=== PATIENT | male | born 1970 | race Caucasian/White ===

== ENCOUNTER 2018-08-20 16:35 | Outpatient (REF) | payer BC, SELFPAY ==
[2018-08-20 20:26] LABS: ALT 42 U/L (12-78); AST 15 U/L (15-37); Albumin 3.8 g/dL (3.4-5.0); Alkaline Phosphatase 101 U/L (46-116); Anion Gap 11.2 mmol/L (3-11); BUN 22 mg/dL (7-18); Bilirubin, Total 0.5 mg/dL (0.2-1.0); CO2 26.8 mmol/L (21.0-32.0); CREATININE 0.86 mg/dL (0.70-1.30); Calcium 9.7 mg/dL (8.5-10.1); Chloride 102 mmol/L (98-107); Cholesterol 175 mg/dL (50-200); Glucose 267 mg/dL (70-100); HDL Cholesterol 44 mg/dL (40-60); LDL CHOLESTEROL 104 mg/dL (<100); Potassium 3.9 mmol/L (3.5-5.1); Sodium 140 mmol/L (136-145); Total Protein 6.9 g/dL (6.4-8.2); Triglyceride 294 mg/dL (30-150)
[2018-08-21 14:31] LABS: Hemoglobin A1C 8.8 % (4.5-6.2)
== END 2018-08-20 16:55 ==
LOC: NCHCN 16:35
PROVIDERS: PCP Nurse Practitioner Family; Visit Provider Family Medicine
DX: E11.65 Type 2 diabetes mellitus with hyperglycemia (principal); Z79.4 Long term (current) use of insulin
CPT/HCPCS: 80053; 80061; 83721; 83036

== ENCOUNTER 2020-02-29 08:32 | Outpatient (REF) | payer BC, SELFPAY ==
[2020-02-29 21:41] LABS: ALT 49 U/L (16-63); AST 18 U/L (15-37); Alkaline Phosphatase 93 U/L (46-116); Anion Gap 8.3 mmol/L (3-11); BUN 26 mg/dL (7-18); Bilirubin, Total 0.5 mg/dL (0.2-1.0); CO2 25.7 mmol/L (21.0-32.0); CREATININE 1.01 mg/dL (0.70-1.30); Calcium 9.1 mg/dL (8.5-10.1); Calculated LDL 111 mg/dL (<100); Chloride 101 mmol/L (98-107); Cholesterol 182 mg/dL (<200); Glucose 216 mg/dL (74-106); HDL Cholesterol 41 mg/dL (40-60); Potassium 4.5 mmol/L (3.5-5.1); Sodium 135 mmol/L (136-145); Triglyceride 150 mg/dL (<150)
[2020-02-29 21:51] LABS: Bilirubin, Direct 0.11 mg/dL (0.00-0.20)
== END 2020-02-29 08:52 ==
LOC: NCHCN 08:32
PROVIDERS: PCP Nurse Practitioner Family; Visit Provider Family Medicine
DX: I10 Essential (primary) hypertension (principal); E78.5 Hyperlipidemia, unspecified; E11.9 Type 2 diabetes mellitus without complications; Z79.4 Long term (current) use of insulin
CPT/HCPCS: 80048; 80061; 80076

== ENCOUNTER 2020-04-13 10:59 | Outpatient (REF) | payer BC, SELFPAY ==
[2020-04-15 20:13] LABS: COVID-19 RT-PCR Result NEGATIVE (Negative)
== END 2020-04-13 11:19 ==
LOC: NCHCN 10:59
PROVIDERS: PCP Nurse Practitioner Family; Visit Provider Family Medicine
DX: Z20.822 Contact with and (suspected) exposure to COVID-19 (principal)
CPT/HCPCS: U0003

== ENCOUNTER 2021-03-01 00:29 | Outpatient (CLI) | payer BC, SELFPAY ==
--- NOTE | 2021-03-01 | DI.RAD_ITS ---
Exam(s) XR HIP RT COMPLETE AP PELVIS EXAM: XR HIP RT COMPLETE AP PELVIS INDICATION: RT HIP PAIN, M25.551. COMPARISON: No exams were available for comparison TECHNIQUE: 2D digital imaging was performed. FINDINGS: Is mild right hip joint space narrowing and mild spurring at the superior acetabulum. No femoral hea d deformity is seen. There is mild spurring at the left superior acetabulum. The SI joints show mil d degenerative changes. IMPRESSION: Mild degenerative changes of the hips, right greater than left. DATA REPOSITORY: RADIATION DOSE DELIVERED:
--- NOTE | 2021-03-01 10:20 | DI.RAD_ITS ---
Exam(s) XR LUMBAR SPINE COMPLETE EXAM: XR LUMBAR SPINE COMPLETE CLINICAL HISTORY: LUMBAR RADICULOPATHY, M54.16. TECHNIQUE: 2D digital imaging was performed. COMPARISON: CR XR HIP RT COMPLETE AP PELVIS from 03/01/2021 CR XR HIP RT COMPLETE AP PELVIS from 03/01/2021 FINDINGS: BONES: No fracture or destructive lesion. Vertebral bodies are well maintained in height. There are prominent bridging osteophytes the right anterior at the L1-2 level. Minimal osteophytes are seen at the remaining levels. The L1-2 disc space shows mild narrowing. The remaining disc spaces are well maintained. No spondylolysis or spondylolisthesis is seen. ALIGNMENT: Lumbar spinal alignment is within normal limits. SOFT TISSUE: Mild aortic calcification. IMPRESSION: Degenerative disc changes at L1-2.. DATA REPOSITORY: RADIATION DOSE DELIVERED:
== END 2021-03-01 00:49 ==
LOC: DI 00:30
PROVIDERS: PCP Nurse Practitioner Family; Visit Provider Family Medicine
DX: M25.551 Pain in right hip (principal); M54.16 Radiculopathy, lumbar region; M51.36 Other intervertebral disc degeneration, lumbar region; M16.0 Bilateral primary osteoarthritis of hip
CPT/HCPCS: 72110; 73502

== ENCOUNTER 2021-06-21 17:02 | Outpatient (REF) | payer BC, SELFPAY ==
[2021-06-21 19:11] LABS: Hemoglobin A1C 7.7 % (<5.7)
[2021-06-21 19:20] LABS: ALT 44 U/L (16-63); AST 20 U/L (15-37); Albumin 4.5 g/dL (3.4-5.0); Alkaline Phosphatase 97 U/L (46-116); Anion Gap 11.4 mmol/L (3-11); BUN 24 mg/dL (7-18); Bilirubin, Total 0.7 mg/dL (0.2-1.0); CO2 24.6 mmol/L (21.0-32.0); Calcium 9.8 mg/dL (8.5-10.1); Chloride 103 mmol/L (98-107); Glucose 139 mg/dL (74-106); Potassium 4.4 mmol/L (3.5-5.1); Sodium 139 mmol/L (136-145); Total Protein 7.6 g/dL (6.4-8.2)
[2021-06-21 19:38] LABS: Calculated LDL 119 mg/dL (<100); Cholesterol 188 mg/dL (<200); HDL Cholesterol 48 mg/dL (40-60); Triglyceride 107 mg/dL (<150)
== END 2021-06-21 17:03 | disposition home or self-care (01) ==
LOC: NCHCN 17:02
PROVIDERS: PCP Nurse Practitioner Family; Visit Provider Family Medicine
DX: E11.65 Type 2 diabetes mellitus with hyperglycemia (principal); I10 Essential (primary) hypertension; E78.5 Hyperlipidemia, unspecified
CPT/HCPCS: 80053; 80061; 83036

== ENCOUNTER 2022-07-22 11:19 | Outpatient (REF) | payer BC, SELFPAY ==
[2022-07-22 16:25] LABS: Hemoglobin A1C 8.7 % (<5.7)
[2022-07-22 16:51] LABS: ALT 58 U/L (16-63); AST 23 U/L (15-37); Alkaline Phosphatase 97 U/L (46-116); BUN 24 mg/dL (7-18); Bilirubin, Total 0.5 mg/dL (0.2-1.0); Calcium 9.4 mg/dL (8.5-10.1); Calculated LDL 104 mg/dL (<100); Chloride 102 mmol/L (98-107); Cholesterol 206 mg/dL (<200); Estimated GFR 91.69 (mL/min/1.73m2); Glucose 230 mg/dL (74-106); HDL Cholesterol 44 mg/dL (40-60); Potassium 4.2 mmol/L (3.5-5.1); Sodium 137 mmol/L (136-145); Total Protein 7.6 g/dL (6.4-8.2); Triglyceride 294 mg/dL (<150)
== END 2022-07-22 11:20 | disposition home or self-care (01) ==
LOC: NCHCN 11:19
PROVIDERS: PCP Nurse Practitioner Family; Visit Provider Family Medicine
DX: E11.65 Type 2 diabetes mellitus with hyperglycemia (principal); E78.5 Hyperlipidemia, unspecified; M79.671 Pain in right foot; I10 Essential (primary) hypertension; Z79.4 Long term (current) use of insulin; M72.2 Plantar fascial fibromatosis
CPT/HCPCS: 80053; 80061; 83036

== ENCOUNTER 2023-01-20 14:44 | Outpatient (REF) | payer BC, SELFPAY ==
[2023-01-20 16:03] LABS: Abs Immature Grans 0.06 10^3/uL (0.0-0.06); Absolute Basophil Count 0.06 10^3/uL (0.0-0.2); Absolute Lymphocyte Count 0.96 10^3/uL (1.2-3.4); Absolute Monocyte Count 0.97 10^3/uL (0.1-0.8); Basophils % 0.5; HCT 46.3 % (40.0-50.0); HGB 15.9 g/dL (13.5-17.5); Immature Grans % 0.5; Lymphocytes % 7.5; MCH 30.9 pg (27.0-33.0); MCHC 34.3 % (32.0-36.0); MCV 90 fL (80-95); MPV 9.2 fL (8.0-11.0); Monocytes % 7.6; Neutrophils % 83.9; Platelet Count 265 10^3/uL (130-400); RBC 5.14 10^6/uL (4.36-5.78); RDW 11.4 % (11.8-14.1); RDW-SD 37.4 fL; WBC 12.78 10^3/uL (4.4-10.8)
[2023-01-20 16:12] LABS: Absolute Neutrophil Count 10.72 10^3/uL (1.2-6.7)
[2023-01-20 16:19] LABS: Anion Gap 9.9 mmol/L (3-11); BUN 28 mg/dL (7-18); CO2 24.1 mmol/L (21.0-32.0); CREATININE 1.5 mg/dL (0.70-1.30); Calcium 10.4 mg/dL (8.5-10.1); Chloride 99 mmol/L (98-107); Estimated GFR 56.37 (mL/min/1.73m2); Glucose 355 mg/dL (74-106); Potassium 4.5 mmol/L (3.5-5.1); Sodium 133 mmol/L (136-145)
== END 2023-01-20 14:45 | disposition home or self-care (01) ==
LOC: NCHCN 14:44
PROVIDERS: PCP Nurse Practitioner Family; Visit Provider Physician Assistant Medical
DX: R10.32 Left lower quadrant pain (principal)
CPT/HCPCS: 80048; 85025

== ENCOUNTER 2023-03-20 18:10 | Outpatient (REF) | payer BC, SELFPAY ==
[2023-03-20 15:53] LABS: AST 19 U/L (15-37); Anion Gap 10.2 mmol/L (3-11); BUN 28 mg/dL (7-18); CO2 26.8 mmol/L (21.0-32.0); CREATININE 1.1 mg/dL (0.70-1.30); Calculated LDL 129 mg/dL (<100); Chloride 98 mmol/L (98-107); Cholesterol 211 mg/dL (<200); Estimated GFR 81.28 (mL/min/1.73m2); Glucose 247 mg/dL (74-106); HDL Cholesterol 50 mg/dL (40-60); Potassium 4.2 mmol/L (3.5-5.1); Sodium 135 mmol/L (136-145); Triglyceride 160 mg/dL (<150)
[2023-03-20 16:19] LABS: Creatine Kinase 150 U/L (39-308)
== END 2023-03-20 18:11 | disposition home or self-care (01) ==
LOC: NCHCN 18:10
PROVIDERS: PCP Family Medicine; Visit Provider Family Medicine
DX: E78.5 Hyperlipidemia, unspecified (principal); I10 Essential (primary) hypertension
CPT/HCPCS: 80048; 80061; 82550; 84450

== ENCOUNTER 2023-06-19 15:43 | Outpatient (REF) | payer BC, SELFPAY ==
[2023-06-19 18:59] LABS: Anion Gap 11.3 mmol/L (3-11); BUN 28 mg/dL (7-18); CO2 26.7 mmol/L (21.0-32.0); Calcium 9.9 mg/dL (8.5-10.1); Chloride 99 mmol/L (98-107); Estimated GFR 91.12 (mL/min/1.73m2); Glucose 189 mg/dL (74-106); Potassium 3.7 mmol/L (3.5-5.1); Sodium 137 mmol/L (136-145)
[2023-06-19 19:36] LABS: Hemoglobin A1C 9.3 % (<5.7)
== END 2023-06-19 15:44 | disposition home or self-care (01) ==
LOC: NCHCN 15:43
PROVIDERS: PCP Family Medicine; Referring Provider Family Medicine; Visit Provider Family Medicine
DX: E11.9 Type 2 diabetes mellitus without complications (principal); I10 Essential (primary) hypertension
CPT/HCPCS: 80048; 83036

== ENCOUNTER → 2023-07-28 04:17 | Outpatient (CLI) | payer BC, SELFPAY ==
--- NOTE | 2023-07-28 08:05 | DI.RAD_ITS ---
Exam(s) XR SHOULDER RT COMPLETE 2+V EXAM: XR SHOULDER RT COMPLETE 2+V CLINICAL HISTORY: RT SHOULDER PAIN, M25.511,? JOINT LIMITATION OR CALCIFIC TENDONITIS. TECHNIQUE: 2D digital imaging was performed of the right shoulder. Five images were obtained. AP, Grashey, Y-view and axillary views were obtained. COMPARISON: No exams were available for comparison FINDINGS: BONES: No acute fracture is present. No bony destructive lesion is seen. JOINTS: No dislocation present. The joint spaces are well maintained. SOFT TISSUE: Normal. No soft tissue calcifications are identified. IMPRESSION: Unremarkable radiographs of the right shoulder. DATA REPOSITORY: RADIATION DOSE DELIVERED:
== END ==
PROVIDERS: PCP Family Medicine; Visit Provider Family Medicine
DX: M25.511 Pain in right shoulder (principal)
CPT/HCPCS: 73030

== ENCOUNTER → 2023-09-28 02:05 | Outpatient (CLI) | payer BC, SELFPAY ==
--- NOTE | 2023-09-28 08:20 | DI.MRI_ITS ---
Exam(s) MR UPPER JOINT RT WO EXAM: MR UPPER JOINT RT WO CLINICAL HISTORY: evaluate for potential partial rotator cuff tear,bursitis rt shoulder,m75.5. TECHNIQUE: Multiplanar multisequence MRI was performed. COMPARISON: CR XR SHOULDER RT COMPLETE 2+V from 07/28/2023 FINDINGS: BONES: There is no fracture or contusion pattern. JOINTS: Moderate degenerative changes are seen at the acromioclavicular joint. The glenohumeral join t is normal. No significant joint effusion. TENDONS: Supraspinatus: Unremarkable. Infraspinatus: On the sagittal images there is hyperintense signal seen within the infraspinatus tend on at its insertion site consistent with a partial tear. Subscapularis: Unremarkable. Teres Minor: Unremarkable. Biceps and [place]: Unremarkable. MUSCLES: Unremarkable. GLENOID LABRUM: There is hyperintense signal seen in the superior labrum through its entire length co nsistent with a tear. SOFT TISSUES: Unremarkable. LIGAMENTS: Unremarkable. OTHER: Subacromial and subdeltoid bursae are unremarkable. IMPRESSION: 1. Hyperintense signal seen in the rotator cuff tendon which appears to be confined to the infraspina tus tendon consistent with a partial tear. This is best appreciated on the sagittal views. 2. Hyperintense signal seen in the superior labrum throughout its entire length consistent with a tea r. 3. Degenerative changes seen at the acromioclavicular joint. DATA REPOSITORY:
== END ==
PROVIDERS: PCP Family Medicine; Visit Provider Student in an Organized Health Care Education/Training Program
DX: M75.51 Bursitis of right shoulder (principal)
CPT/HCPCS: 73221

== ENCOUNTER 2024-03-11 06:04 | Day surgery (SDC) | payer BC, SELFPAY ==
[2024-03-11] VITALS (25 sets, daily range): BP systolic 102–154; BP diastolic 36–98; PULSE 61–84; RESP 14–22; TEMP 36.1–36.6; O2SAT 92–96; BMI 31.1
[2024-03-11] MEDS: Normal Saline 1,000 ML 30 ML IV (07:10)
--- NOTE | 2024-03-11 07:13 | W.PM.DSUDISC ---
Date of service: 03/11/24 Discharge Plan Disposition Patient Disposition: Home Condition: Stable Discharge Details Attending Provider: Carlos Go Primary Care Provider: Angela Baig V Home Meds and New Rx's Prescriptions: New oxycodone-acetaminophen [Percocet] 5-325 mg tablet 1 - 2 tab PO Q4H MDD 30 mg PRN (Reason: moderate to severe pain) Qty: 18 0RF naproxen 250 mg tablet 250 - 500 mg PO BID PRNQty: 40 0RF Rx Instructions: take with a meal Continued Ozempic 1 mg/dose (4 mg/3 mL) pen injector 1 mg subcut QWEEK glucosamine HCl 1,500 mg tablet 1,500 mg PO DAILY Rx Instructions: administer with a meal fexofenadine [Ade Allergy] 180 mg tablet 180 mg PO DAILY multivitamin Tablet 1 tab PO DAILY aspirin 81 mg tablet,delayed release (DR/EC) 81 mg PO DAILY insulin lispro [Humalog KwikPen Insulin] 100 unit/mL insulin pen 1 sliding scale dose subcut USEASDIRECTD losartan-hydrochlorothiazide 100-25 mg tablet 1 tab PO DAILY atorvastatin 40 mg tablet 40 mg PO DAILY metformin 500 mg tablet 500 mg PO DAILY insulin degludec [Tresiba FlexTouch U-100] 100 unit/mL (3 mL) insulin pen 50 unit subcut DAILY Discharge Instructions Additional Instructions: Surgery: Right shoulder arthroscopy with biceps tenodesis, extensive debridement, subacromial decompression, and manipulation under anesthesia. Activity: You should gradually increase range of motion motion and use of your shoulder. You may use your shoulder for all regular activities while protecting biceps repair. Avoid any weighted elbow flexion or resisted supination for 6-8 weeks. No heavy lifting, reaching overhead, or lifting away from body for approximately 2-3 months. You may use the sling whenever you are out of the house for a few weeks. At home it is best to remove the sling and rest the arm on a pillow at your side or support the operative side with your other hand. A physical therapy prescription will be sent electronically to start in about 3 weeks. Prescriptions: Resume home aspirin 81 mg tomorrow Naproxen 250 mg take 1-2 every 12 hours with a meal as needed for moderate pain Oxycodone-acetaminophen 5-325 mg take 1-2 every 4-6 hours as needed for severe pain You may use vfwb-spi-xxcctns Tylenol (acetaminophen) as needed for mild pain. These pain medications may be taken all at once or in different combinations as needed. Also, recommend Colace (docusate) as a stool softener as surgery and pain medicine cause constipation. You may try ealw-lez-edirxak diphenhydramine (Benadryl) 25-50 mg nightly as a sleep aid Dressings: Remove shoulder bandage after 3 days. Leave the sticky Steri-Strips in place until they fall off or remove them after you shower. Cover the incisions with Band-Aids or leave them open to air. You may shower after 5 days. Follow-up: 10-[address] Go You may take off the leg compression stockings this evening at home. You may also leave them on a few days longer if you have a history of leg swelling or edema. Let us know right away if you develop any redness, drainage, fevers, chest pain, or trouble breathing. Do not drink alcohol or drive for at least 24 hours after anesthesia. Please call the office during business hours with any questions or concerns. Discharge Orders Discharge Orders: Discharge Order (Routine); Ordered 03/11/24 Ordered By: Destinee Reed DS: Diagnosis Discharge Diagnosis (1) Right rotator cuff tear: Status: Acute (2) Superior labrum dzeqsqhp-sk-wlkaaeweo (SLAP) tear of right shoulder: Status: Acute
--- NOTE | 2024-03-11 07:16 | ROE_ITS ---
Operative Note Operative Note PRE-OP DIAGNOSIS: Right: 1. Rotator cuff tear 2. SLAP tear 3. Impingement POST-OP DIAGNOSIS: same Right: 1. Rotator cuff tear 2. SLAP tear 3. Stiffness PROCEDURE: Right: 1. Arthroscopic biceps tenodesis, CPT# 85565. This involved arthroscopically suturing and reattaching the long head of the biceps tendon to the proximal humerus at the superior margin of the bicipital groove with a screw at the correct tension. 2. Extensive debridement, CPT# 51424. This involved using arthroscopic hand instruments, power instruments, and radiofrequency instruments to release the long head of the biceps tendon and debride areas of anterior and posterior labral tearing, SLAP tearing, anterior and rotator interval synovitis, and release [facility] L as part of an anterior capsular release 3. Subacromial decompression with partial acromioplasty, CPT# 84932. This involved using arthroscopic power instruments and a radiofrequency wand to complete a bursectomy and smooth the undersurface of the acromion. 4. Manipulation under anesthesia, CPT #04768 The delinquent tax collection assistant was medically required in order to help assist in techniques above, which require positioning the arm, holding the arthroscope, and manipulating multiple instruments and sutures at the same time. This cannot be done without the help of an experienced delinquent tax collection assistant. SURGEON: Carlos Go STITCHER FEEDER: Destinee Reed ANESTHESIA TYPE: Local By Surgeon, General LMA/ETT and Primary Nerve Block Refer to Anesthesia Record ESTIMATED BLOOD LOSS: 5 PATHOLOGY: none sent COMPLICATIONS: None Patient was transported to: PACU Patient's condition: stable Implants: Arthrex: 4.75mm SwiveLocks x 1 Indications: The patient was diagnosed with the above conditions and appropriately indicated for surgical intervention. Please see complete medical record for details. Findings: Exam under anesthesia: Notable stiffness with limited forward elevation about 115 degrees, external rotation about 35 degrees, less then the full range of motion on the contralateral side. Full range of motion post?manipulation. Glenohumeral joint: Moderately significant anterior and rotator interval synovitis, thickened anterior capsule and [facility] L. Intact subscapularis. Intact long head biceps tendon with inflammation injection down the bicipital groove. Obvious unstable biceps anchor SLAP tear. Anterior and posterior labral fraying tearing. Only mild anterior supraspinatus articular sided tearing with majority articular depression manage infraspinatus intact. Mild glenohumeral chondromalacia. Subacromial space: Only mild bursitis, mild bursal rotator cuff fraying, but no significant structural tearing. Minimal undersurface acromial bone spurring. Procedure Description: In the operating room, general anesthesia was induced. Bilateral shoulders were examined. The operative right shoulder demonstrated notable stiffness, the correct side of the procedure was confirmed and while the patient was still supine a manipulation under anesthesia was done carefully guiding the shoulder into full range of motion with excellent releases felt into forward elevation using a short lever arm and gentle steady pressure. The shoulder was then brought into about full external rotation without resistance really or release needed. Internal rotation was okay. Stretching was done exaggerating and repeating forward elevation in particular multiple times ensure full range of motion past 145 degrees and 55 degrees to rotation similar to the contralateral side. The patient was then positioned in the beachchair position. All bony prominences were well-padded. Preoperative antibiotics were administered. The shoulder was prepped and draped in the usual sterile fashion. The correct patient, procedure, and side of the procedure were all verified prior to incis ion. The partial articular supraspinatus tearing was probed and had minimal footprint involvement and was more of an underside fraying of then any significant structural thinning or tearing. Starting through the posterior portal a standard complete diagnostic arthroscopy was performed of the glenohumeral joint including inspection of the long head of the biceps, anterior and superior labrum, subscapularis tendon, supraspinatus and infraspinatus tendons, and axillary recess. The glenoid and humeral head cartilage as well as the posterior labrum were inspected from an anterior viewing portal. Significant findings and interventions noted above. There was mildly decreased inferior capsular recess. The thickened anterior capsule [facility] L was released with arthroscopic scissors and the edges ablated. Anterior and rotator was synovitis was debrided as well. An all-arthroscopic suprapectoral biceps tenodesis was performed through an anterior portal using a Loop N Tack method with a SutureTape FiberLink cinched around and through the tendon. The biceps was tenotomized from the labrum and fixated with a suture anchor at the superior margin of the bicipital groove. The knotless extra repair suture shoulder around the tendon stump, back through the anchor eyelet mechanism, and then tensioned and nice additional security to the repair, which are stable through testing. The arm had good contour of the biceps. Starting through the posterior portal, the arthroscope was directed into the subacromial space. A lateral 50 yard line lateral portal was omitted. A combination of power instruments and a radiofrequency ablator were used to debride bursitis anteriorly, posteriorly, and laterally as well as expose and smooth bone spurring on the undersurface of the acromion. The coracoacromial ligament was partially released. The bursectomy was completed viewing laterally and working from posteriorly and the rotator cuff was thoroughly inspected with findings noted above. There was no significant structural bursal rotator cuff tearing requiring repair. The shoulder was drained of arthroscopic fluid. All portal sites were copiously irrigated. These incisions were closed using 3-0 Monocryl in a buried fashion and then covered with Mastisol, Steri-Strips, Xeroform, dry gauze, and ABDs. The dressings were covered and secured with Medipore tape. The operative extremity was placed into a sling for immobilization. The patient awoke from anesthesia without complication and was transferred to the recovery room in a stable condition. Date of Procedure: 03/11/24
[2024-03-11] MEDS: ceFAZolin 2 GM/50 ML BAG IVPB (07:58)
[2024-03-11] MEDS: TRANEXAMIC ACID/SOD. CHL. 1,000 MG/100 ML BAG 600 MG IVPB (08:06)
--- NOTE | 2024-03-11 08:18 | ANES.PREOP_ITS ---
General Info Date of Service Date Performed: 03/11/24 Height: 5 ft 10 in Weight: 98.5 kg Body Mass Index (BMI): 31.1 Surgical Procedure: Operation Date: 03/11/24 07:40 Proposed Procedure Side Surgeon p Shoulder Rotator Cuff Arthroscopic w/Extensive Debridement, Biceps Tenodesis, Subacromial Decompression Right Carlos Go MD Actual Procedure Side Surgeon p Shoulder Rotator Cuff Arthroscopic w/Extensive Debridement, Biceps Tenodesis, Subacromial Decompression Right Carlos Go MD Pre-Op Diagnosis Post-Op Diagnosis SLAP TEAR, RTC TEAR RIGHT SHOULDER Meds Allergies and Home Medications Allergies Allergy/AdvReac Type Severity Reaction Status Date / Time No Known Allergies Allergy Verified 03/11/24 06:24 Home Medication ?Medication ?Instructions ?Recorded aspirin 81 mg tablet,delayed 81 mg PO DAILY 01/26/23 release atorvastatin 40 mg tablet 40 mg PO DAILY 01/26/23 fexofenadine 180 mg tablet 180 mg PO DAILY 01/26/23 (Ade Allergy) glucosamine HCl 1,500 mg tablet 1,500 mg PO DAILY 01/26/23 insulin degludec 100 unit/mL (3 50 unit subcut DAILY 01/26/23 mL) subcutaneous pen (Tresiba FlexTouch U-100 insulin) insulin lispro 100 unit/mL 1 sliding scale dose subcut 01/26/23 subcutaneous pen (Humalog KwikPen USEASDIRECTD (U-100) Insulin) losartan 100 1 tab PO DAILY 01/26/23 mg-hydrochlorothiazide 25 mg tablet metformin 500 mg tablet 500 mg PO DAILY 01/26/23 multivitamin 1 tab PO DAILY 01/26/23 semaglutide 1 mg/dose (4 mg/3 mL) 1 mg subcut QWEEK 08/19/23 subcutaneous pen injector (Ozempic) naproxen 250 mg tablet 250 - 500 mg (1 - 2 x 250 mg) PO 03/11/24 BID PRN moderate pain and swelling #40 tabs oxycodone-acetaminophen 5 mg-325 1 - 2 tab PO Q4H PRN moderate to 03/11/24 mg tablet (Percocet) severe pain #18 tabs Current Visit Medications: Current Medications Generic Name Dose Route Start Last Admin Trade Name Freq PRN Reason Stop Dose Admin Cefazolin Sodium/Dextrose 2 gm in 50 mls @ 100 mls/hr 03/11/24 06:00 Ancef Duplex IVPB 03/11/24 23:59 PREOP YOLY Tranexamic Acid/Sodium Chloride 1,000 mg in 100 mls @ 600 mls/hr 03/11/24 06:00 IVPB 03/11/24 23:59 PREOP YOLY Sodium Chloride 1,000 mls @ 30 mls/hr 03/11/24 07:30 03/11/24 07:10 Saline 1000ml Bag IV 04/10/24 07:29 30 mls/hr INFUSION YOLY Administration IV Miscellaneous Supplies 1 each 03/11/24 06:00 Iv Access IV 03/11/24 23:59 DIRECTED YOLY Oxycodone HCl 0 mg 03/11/24 07:13 Oxycodone 5 Mg Tab PO 04/10/24 07:12 Q3H PRN PRN Pain Sodium Chloride 0 ml 03/11/24 06:00 Normal Saline Flush 10 Ml Syr IV 03/11/24 23:59 PRN PRN Sodium Chloride 0 ml 03/11/24 06:00 Normal Saline 10 Ml Vial IJ 03/11/24 23:59 DIRECTED PRN Sterile Water 0 ml 03/11/24 06:00 Water,Injection,Sterile 10 Ml Vial IJ 03/11/24 23:59 DIRECTED PRN PFSH Active Problems Active Problems: Problem Status Onset Code Right rotator cuff tear Acute M75.101 Superior labrum qrfmrnqg-ad-zdgjuiajm (SLAP) tear of right shoulder Acute S43.431A No-show for appointment Acute Z91.199 Bursitis of right shoulder Acute M75.51 Hypertension Chronic I10 Allergic rhinitis Acute J30.9 Hyperlipidemia Acute E78.5 Erectile dysfunction Acute N52.9 Sciatica Acute M54.30 Diabetes mellitus Chronic E11.9 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 Lumbar radiculopathy Acute M54.16 Hip pain Acute M25.559 Foot pain Acute M79.673 Low back pain Acute M54.50 Flank pain Acute R10.9 Surgical History Surgical History Hx of appendectomy Tobacco Smoking/Tobacco Use Status: Current every day Tobacco Type: smokeless tobacco Alcohol Alcohol Intake: current Alcohol intake frequency: 3 or more drinks per day Alcohol type: hard liquor Substance Use Substance use type: does not use Vital Signs and Lab Results Vital Signs Most Recent Vital Signs in EMR: Most Recent Vital Signs Temp Pulse Resp BP Pulse Ox 36.6 C 72 16 150/90 H 96 03/11/24 06:27 03/11/24 06:27 03/11/24 06:27 03/11/24 06:27 03/11/24 06:27 Point of Care Results Point of Care Results: Finger Stick Blood Glucose 150 03/11/24 07:00 Lab Results Blood Type / Crossmatch: 2 No Data to Display Complete Blood Count: 2 No Data to Display Complete Metabolic Panel: 2 No Data to Display Liver Function Panel: 2 No Data to Display Coagulation Panel: 2 No Data to Display Cardiac Panel: 2 No Data to Display Arterial Blood Gas: 2 No Data to Display Venous Blood Gas: 2 No Data to Display Pancreas Panel: 2 No Data to Display Thyroid Panel: 2 No Data to Display Infectious Disease: 2 No Data to Display Blood Cultures: 2 No Data to Display Toxicology Panel: 2 No Data to Display Anesthesia Assessment and Plan Anesthesia History Personal History: No History of Anesthesia Complications Family History: No Family History of Anesthesia Complications Exercise Tolerance Exercise Tolerance: Metabolic Equivalents>4 Pertinent Negatives Pertinent Negatives: No Symptoms of GERD, No Major Cardiovascular Symptoms or Complaints, No Major Pulmonary Symptoms or Complaints and No History of CVA/TIA Cardiac & Pulmonary Exam Cardiac Exam: Normal S1/S2 Heart Sounds Pulmonary Exam: Clear Bilateral Breath Sounds Implantable Cardiac Device Does patient have a Pacemaker or an ICD?: No Airway Exam Known Difficult Airway: No Mallampati Class: 1 Mouth Opening: Normal (> 3cm) Thyromental Distance: Greater than 3 cm Neck Range of Motion: Full ROM Neck Circumference: Normal Teeth Condition: Normal Dentition Tooth Numberin 1. missing 2. missing 3. missing ASA Classification ASA Score: ASA 2 Emergency Case?: No NPO Status NPO Status: NPO Clears >2 hours, Solids >8 hours Anesthesia Plan Resuscitation Status: Full Code Anesthesia Technique: General Anesthesia Airway Planned: Endotracheal Tube Pain Management: Surgeon and patient request nerve block Monitors Used: Standard Monitors and SedLine
--- NOTE | 2024-03-11 08:21 | W.ANESNERVE ---
Nerve Block Single Injection Procedure Date and Time Date Performed: 03/11/24 Procedure Start: 07:25 Location Where Procedure Performed Procedure Location: Day Surgery Unit Reason Performed: Postoperative Analgesia Requesting Provider: Carlos Go Timeout Performed Timeout Performed: Yes Monitoring Used ECG, Blood Pressure and SpO2 Sterility Sterility: Hand Hygiene, Surgical Cap, Surgical Mask, Sterile Gloves and Chlorhexidine Sedation Given During Procedure Sedation Given (Indicate Dose Given): Versed IV Dose:: 2 mg Patient Mental Status Patient Mental Status: Sedate with meaningful communication Nerve Block 1st Nerve Block: Laterality: Right Block Type: Interscalene Ultrasound Image Saved?: Yes Needle / Catheter Used: 100mm SonoPlex II Local Anesthetic Bolus (Indicate Dose Given): Lidocaine used for local infiltration of skin, Injected in 3-5ml increments after negative blood aspiration, Bupivacaine 0.5% Dose:: 10 mL and Exparel Dose:: 10 mL Additives (Indicate Dose Given): None Ultrasound: Sterile probe cover and gel used Nerve Stimulator: Supplement to Ultrasound use and No twitch or parasthesia noted < 0.5 mA Paresthesia: None Procedure Tolerated: No Complications Procedure Outcome: Successful Performed By: Linocln Constantino Supervised By: Mushtaq Orellana
[2024-03-11] MEDS: Bupivacaine 0.25% Pres-Free W/EPI 30 ML VIAL (08:24)
[2024-03-11] MEDS: EPINEPHrine 10 MG/10 ML ML (08:25)
--- NOTE | 2024-03-11 11:00 | W.ANESPOSTOP ---
Postoperative Evaluation Date, Time and Location Date Performed: 03/11/24 Time Performed: 11:00 Patient Location: Day Surgery Unit Vital Signs Most Recent Imported Vital Signs: Most Recent Vital Signs Temp Pulse Resp BP Pulse Ox 36.5 C 71 16 139/79 93 03/11/24 10:39 03/11/24 10:39 03/11/24 10:39 03/11/24 10:39 03/11/24 10:39 Pain Score Most Recent Pain Score: Most Recent Pain Score Pain Level 0 03/11/24 10:39 Assessment Mental Status: Awake (Alert & Oriented to Patient Baseline) Airway and Respiratory Function: Patent airway with normal (patient baseline) respiratory exam Cardiovascular Function: Hemodynamically Stable Hydration Status: Adequately Hydrated Nausea & Vomiting: No Nausea or Vomiting Pain: Pt. Denies Any Pain Peripheral Nerve Block: Regional nerve block not resolved at time of post operative discharge Postoperative Comments:: Educated to timeline of block and importance of protecting arm while block in effect with spouse at bedside. Allowed time for questions, patient had none.
== END 2024-03-11 11:25 | disposition home or self-care (01) ==
PROVIDERS: PCP Family Medicine; Visit Provider Student in an Organized Health Care Education/Training Program
PROC: (CPT 29827; principal; 2024-03-11 07:30)
DX: M75.101 Unspecified rotator cuff tear or rupture of right shoulder, not specified as traumatic (principal); S43.431A Superior glenoid labrum lesion of right shoulder, initial encounter; X58.XXXA Exposure to other specified factors, initial encounter; M75.41 Impingement syndrome of right shoulder; G89.18 Other acute postprocedural pain
CPT/HCPCS: 29828; 29823; 29826; 23700; 64415; C9290; J0131; J0665; J0690; J1100; J2250; J2371; J2405; J2704

== ENCOUNTER 2024-09-22 20:23 | Outpatient (REF) | payer BC, SELFPAY ==
[2024-09-22 19:09] LABS: ALT 55 U/L (16-63); AST 26 U/L (15-37); Albumin 4.4 g/dL (3.4-5.0); Alkaline Phosphatase 95 U/L (46-116); Anion Gap 14.6 mmol/L (3-11); BUN 35 mg/dL (7-18); Bilirubin, Total 0.8 mg/dL (0.2-1.0); CO2 23.4 mmol/L (21.0-32.0); CREATININE 1.3 mg/dL (0.70-1.30); Calcium 10.1 mg/dL (8.5-10.1); Chloride 102 mmol/L (98-107); Glucose 165 mg/dL (74-106); Potassium 4.2 mmol/L (3.5-5.1); Sodium 140 mmol/L (136-145); Total Protein 7.6 g/dL (6.4-8.2)
== END 2024-09-22 20:24 | disposition home or self-care (01) ==
LOC: NCHCN 20:23
PROVIDERS: PCP Family Medicine; Visit Provider Family Medicine
DX: E11.65 Type 2 diabetes mellitus with hyperglycemia (principal); I10 Essential (primary) hypertension
CPT/HCPCS: 80053; 83036

== ENCOUNTER 2024-12-22 15:23 | Outpatient (REF) | payer BC, SELFPAY ==
[2024-12-22 17:16] LABS: COMMENT (LAB VIEW ONLY) 80.68 mg/dL; Microalb ug/mg Crea 33.8 ug/mg Cr
== END 2024-12-22 15:24 | disposition home or self-care (01) ==
LOC: NCHCN 15:23
PROVIDERS: PCP Family Medicine; Visit Provider Family Medicine
DX: E11.65 Type 2 diabetes mellitus with hyperglycemia (principal)
CPT/HCPCS: 82043; 82570